=== PATIENT | female | born 1955 | race Caucasian/White ===

== ENCOUNTER 2019-09-06 05:48 | Outpatient (CLI) | payer OTHER ==
[2019-09-05 14:49] VITALS: BMI 20.7
[2019-09-07 12:16] LABS: SARS-CoV-2 MS2 Positive; SARS-CoV-2 N Gene Negative; SARS-CoV-2 S Gene Negative; SARS-CoV-2 orf1ab Negative
--- NOTE | 2019-09-09 10:17 | EKG ---
Test Reason : FOR 09/10 Blood Pressure : / mmHG Vent. Rate : 078 BPM Atrial Rate : 078 BPM P-R Int : 160 ms QRS Dur : 114 ms QT Int : 422 ms P-R-T Axes : 048 -10 048 degrees QTc Int : 481 ms Normal sinus rhythm Normal ECG When compared with ECG of 06-SEP-2019 10:51, (Unconfirmed) No significant change was found Confirmed by SOCRATES FOFANA ([id number]) on 09/09/2019 10:16:48 AM Referred By: ELIANA Confirmed By:SOCRATES FOFANA
== END 2019-09-06 05:49 | disposition home or self-care (01) ==
LOC: LABBT 05:48
PROVIDERS: ATTEND Otolaryngology Plastic Surgery within the Head & Neck
DX: Z01.818 Encounter for other preprocedural examination (principal); Z11.59 Encounter for screening for other viral diseases; J32.9 Chronic sinusitis, unspecified; J32.0 Chronic maxillary sinusitis; J32.1 Chronic frontal sinusitis; J32.2 Chronic ethmoidal sinusitis; J32.3 Chronic sphenoidal sinusitis; J34.3 Hypertrophy of nasal turbinates; K21.9 Gastro-esophageal reflux disease without esophagitis
CPT/HCPCS: 85014; 87635; 93005; 93010; U0003